=== PATIENT | male | born 1985 | race American Indian/Alaskan Native ===

== ENCOUNTER 2017-06-09 12:07 | Emergency (ER) | payer SELFPAY ==
[2017-06-09] MEDS ORDERED: Sodium Chloride 0.9% 10 ML Syringe FLUSH PRN (12:20)
--- NOTE | 2017-06-09 12:20 | EDM.PDOCBH ---
ED HPI GENERAL MEDICAL PROBLEM - General Chief Complaint: Drug or Alcohol Abuse Stated Complaint: AMBULANCE/OD Time Seen by Provider: 06/09/17 12:19 Source of Information: Reports: Patient, EMS, Old Records, RN, RN Notes Reviewed History Limitations: Reports: Intoxication - History of Present Illness INITIAL COMMENTS - FREE TEXT/NARRATIVE: Pt arrives by ambulance with report that pt took #12 tablets of Ambien 10mg, one box of #12 tablets of Coricidin Cold Tablets, and possibly a few Prozac 20mg and Gabapentin 300mg. Pt admits to polysubstance abuse but isn't sure what , or when he "used" last. Pt states he has been sad and depressed, so he "O.D.'d ". 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 Onset: Today, Unknown/Unsure (time of ingestion is unclear, pt reported to EMS that he took the pills 30mins. prior to calling 911) Duration: Constant Location: Reports: Generalized Severity: Severe Improves with: Reports: None Worsens with: Reports: None Associated Symptoms: Reports: No Other Symptoms - Related Data Allergies Allergy/AdvReac Type Severity Reaction Status Date / Time No Known Allergies Allergy Verified 12/30/13 13:09 Home Meds: Home Meds FLUoxetine [PROzac] 20 mg PO DAILY 10/26/13 [History] Zolpidem [Ambien] 15 mg PO DAILY 10/26/13 [History] Gabapentin [Neurontin] 300 mg PO TID 06/09/17 [History] Past Medical History Psychiatric History: Reports: Addiction, Depression Social & Family History - Family History Family Medical History: Unobtainable - Tobacco Use Smoking Status *Q: Current Every Day Smoker Years of Tobacco use: 16 Second Hand Smoke Exposure: Yes - Alcohol Use Days Per Week of Alcohol Use: 0 - Recreational Drug Use Recreational Drug Use: No Recreational Drug Type: Reports: Marijuana/Hashish, Methamphetamine - Living Situation & Occupation Living situation: Reports: with Family ED ROS GENERAL - Review of Systems Review Of Systems: Unable To Obtain ED EXAM, BEHAVIORAL HEALTH - Physical Exam Exam: See Below Exam Limited By: Intoxication General Appearance: Other (Sed[place], but awake and responsive to verbal stimuli) Eye Exam: Bilateral Eye: EOMI, PERRL (pupils equal and widely dilated) Ears: Normal External Exam, Normal Canal, Hearing Grossly Normal, Normal TMs Nose: Normal Inspection, Normal Mucosa, No Blood Throat/Mouth: Normal Inspection, Normal Lips, Normal Oropharynx, Normal Voice, No Airway Compromise Head: Atraumatic, Normocephalic Neck: Normal Inspection, Supple, Non-Tender, Full Range of Motion Respiratory/Chest: No Respiratory Distress, Lungs Clear, Normal Breath Sounds, No Accessory Muscle Use, Chest Non-Tender Cardiovascular: Normal Peripheral Pulses, Regular Rate, Rhythm, No Edema, No Gallop, No JVD, No Murmur, No Rub GI/Abdominal: Normal Bowel Sounds, Soft, Non-Tender, No Organomegaly, No Distention, No Abnormal Bruit, No Mass (Male) Exam: Deferred Rectal (Males) Exam: Deferred Back Exam: Normal Inspection Extremities: Normal Inspection, Normal Range of Motion, Non-Tender, Normal Capillary Refill, No Pedal Edema Neurological: Alert (but somnolent, answers to verbal stimuli, mildy confused), Disoriented to Time, Slow Response to Commands EKG INTERPRETATION EKG Date: 06/09/17 Time: 12:35 Rhythm: NSR Rate (Beats/Min): 87 [place]: Normal P-Wave: Present QRS: Normal ST-T: Normal QT: Normal Comparison: NA - No Prior EKG COURSE, BEHAVIORAL HEALTH COMP - Course Vital Signs: Last Vital Signs Temp 37.4 C 06/09/17 13:12 Pulse 83 06/09/17 13:12 Resp 21 H 06/09/17 13:12 BP 103/79 06/09/17 13:12 Pulse Ox 96 06/09/17 13:12 Orders, Labs, Meds: Active Orders 24 hr Category Date Time Status Blood Glucose Check, Bedside [] ONETIME Care 06/09/17 12:20 Active EKG 12 Lead [EKG Documentation Completion] [RC] STAT Care 06/09/17 12:20 Active Peripheral IV Care [RC] . DIRECTED Care 06/09/17 12:20 Active Telemetry Monitoring [Cardiac Monitoring] [RC] . Care 06/09/17 12:21 Active DIRECTED DRUG SCREEN URINE BIORAD [URCHEM] Stat Lab 06/09/17 12:51 Ordered UA W/MICROSCOPIC [URIN] Stat Lab 06/09/17 12:51 Ordered Sodium Chloride 0.9% [Saline Flush] Med 06/09/17 12:20 Active 10 ml FLUSH ASDIRECTED PRN Peripheral IV Insertion Adult [OM.PC] Stat Oth 06/09/17 12:20 Ordered Medication Orders Sodium Chloride (Saline Flush) 10 ml FLUSH ASDIRECTED PRN PRN Reason: Keep Vein Open Laboratory Tests 06/09/17 06/09/17 06/09/17 Range/Units 12:28 12:29 12:29 WBC 7.3 (5.0-10.0) 10^3/uL RBC 4.77 (4.6-6.2) 10^6/uL Hgb 13.7 L (14.0-18.0) g/dL Hct 41.7 (40.0-54.0) % MCV 87.4 (80-100) fL MCH 28.7 (27.0-34.0) pg MCHC 32.9 L (33.0-35.0) g/dL Plt Count 286 (150-450) 10^3/uL Neut % (Auto) 43.2 (42.2-75.2) % Lymph % (Auto) 44.5 (20.5-50.1) % [place] % (Auto) 8.2 H (2-8) % Eos % (Auto) 3.3 H (1.0-3.0) % Baso % (Auto) 0.8 (0.0-1.0) % PT 9.5 (9.0-12.0) SEC INR 1.0 (0.9-1.2) APTT 26.7 (22.0-34.0) SEC Sodium (135-145) mmol/L Potassium (3.6-5.0) mmol/L Chloride (101-111) mmol/L Carbon Dioxide (21.0-31.0) mmol/L Anion Gap BUN (7-18) mg/dL Creatinine (0.6-1.3) mg/dL Est Cr Clr Drug Dosing mL/min Estimated GFR (MDRD) BUN/Creatinine Ratio Glucose (74-105) mg/dL POC Glucose 86 (70-105) mg/dl Calcium (8.4-10.2) mg/dl Magnesium (1.8-2.5) mg/dL Total Bilirubin (0.2-1.0) mg/dL AST (10-42) IU/L ALT (10-60) IU/L Alkaline Phosphatase (42-121) IU/L Total Protein (6.7-8.2) g/dl Albumin (3.2-5.5) g/dl Globulin Albumin/Globulin Ratio TSH, Ultra Sensitive (0.45-5.33) uIu/mL Urine Color (YELLOW) Urine Appearance (CLEAR) Urine pH (5.0-9.0) Ur Specific [place] (1.005-1.030) Urine Protein (NEGATIVE) Urine Glucose (UA) (NEGATIVE) Urine Ketones (NEGATIVE) Urine Occult Blood (NEGATIVE) Urine Nitrite (NEGATIVE) Urine Bilirubin (NEGATIVE) Urine Urobilinogen (0.2-1.0) mg/dL Ur Leukocyte Esterase (NEGATIVE) Urine RBC /HPF Urine WBC (0-5/HPF) /HPF Ur Epithelial Cells /HPF Urine Bacteria (0-FEW/HPF) /HPF Salicylates Urine Opiates Screen (NEGATIVE) Ur Oxycodone Screen (NEGATIVE) Urine Methadone Screen (NEGATIVE) Acetaminophen Ur Barbiturates Screen (NEGATIVE) U Tricyclic Antidepress (NEGATIVE) Ur Phencyclidine Scrn (NEGATIVE) Ur Amphetamine Screen (NEGATIVE) U Methamphetamines Scrn (NEGATIVE) Urine MDMA Screen (NEGATIVE) U Benzodiazepines Scrn (NEGATIVE) Urine Cocaine Screen (NEGATIVE) U Marijuana (THC) Screen (NEGATIVE) Ethyl Alcohol mg/dL 06/09/17 06/09/17 06/09/17 Range/Units 12:29 12:29 12:51 WBC (5.0-10.0) 10^3/uL RBC (4.6-6.2) 10^6/uL Hgb (14.0-18.0) g/dL Hct (40.0-54.0) % MCV (80-100) fL MCH (27.0-34.0) pg MCHC (33.0-35.0) g/dL Plt Count (150-450) 10^3/uL Neut % (Auto) (42.2-75.2) % Lymph % (Auto) (20.5-50.1) % [place] % (Auto) (2-8) % Eos % (Auto) (1.0-3.0) % Baso % (Auto) (0.0-1.0) % PT (9.0-12.0) SEC INR (0.9-1.2) APTT (22.0-34.0) SEC Sodium 138 (135-145) mmol/L Potassium 4.5 (3.6-5.0) mmol/L Chloride 104 (101-111) mmol/L Carbon Dioxide 28.0 (21.0-31.0) mmol/L Anion Gap 10.5 BUN 8 (7-18) mg/dL Creatinine 1.2 (0.6-1.3) mg/dL Est Cr Clr Drug Dosing 96.10 mL/min Estimated GFR (MDRD) > 60 BUN/Creatinine Ratio 6.66 Glucose 95 (74-105) mg/dL POC Glucose (70-105) mg/dl Calcium 8.8 (8.4-10.2) mg/dl Magnesium 2.1 (1.8-2.5) mg/dL Total Bilirubin 0.6 (0.2-1.0) mg/dL AST 27 (10-42) IU/L ALT 26 (10-60) IU/L Alkaline Phosphatase 101 (42-121) IU/L Total Protein 8.0 (6.7-8.2) g/dl Albumin 4.1 (3.2-5.5) g/dl Globulin 3.9 Albumin/Globulin Ratio 1.05 TSH, Ultra Sensitive 0.49 (0.45-5.33) uIu/mL Urine Color Yellow (YELLOW) Urine Appearance Clear (CLEAR) Urine pH 7.0 (5.0-9.0) Ur Specific [place] 1.015 (1.005-1.030) Urine Protein Negative (NEGATIVE) Urine Glucose (UA) Negative (NEGATIVE) Urine Ketones Negative (NEGATIVE) Urine Occult Blood Negative (NEGATIVE) Urine Nitrite Negative (NEGATIVE) Urine Bilirubin Negative (NEGATIVE) Urine Urobilinogen 0.2 (0.2-1.0) mg/dL Ur Leukocyte Esterase Negative (NEGATIVE) Urine RBC 0-5 /HPF Urine WBC 0-5 (0-5/HPF) /HPF Ur Epithelial Cells Rare /HPF Urine Bacteria Rare (0-FEW/HPF) /HPF Salicylates < 4 Urine Opiates Screen (NEGATIVE) Ur Oxycodone Screen (NEGATIVE) Urine Methadone Screen (NEGATIVE) Acetaminophen < 10 Ur Barbiturates Screen (NEGATIVE) U Tricyclic Antidepress (NEGATIVE) Ur Phencyclidine Scrn (NEGATIVE) Ur Amphetamine Screen (NEGATIVE) U Methamphetamines Scrn (NEGATIVE) Urine MDMA Screen (NEGATIVE) U Benzodiazepines Scrn (NEGATIVE) Urine Cocaine Screen (NEGATIVE) U Marijuana (THC) Screen (NEGATIVE) Ethyl Alcohol < 5 mg/dL 06/09/17 Range/Units 12:51 WBC (5.0-10.0) 10^3/uL RBC (4.6-6.2) 10^6/uL Hgb (14.0-18.0) g/dL Hct (40.0-54.0) % MCV (80-100) fL MCH (27.0-34.0) pg MCHC (33.0-35.0) g/dL Plt Count (150-450) 10^3/uL Neut % (Auto) (42.2-75.2) % Lymph % (Auto) (20.5-50.1) % [place] % (Auto) (2-8) % Eos % (Auto) (1.0-3.0) % Baso % (Auto) (0.0-1.0) % PT (9.0-12.0) SEC INR (0.9-1.2) APTT (22.0-34.0) SEC Sodium (135-145) mmol/L Potassium (3.6-5.0) mmol/L Chloride (101-111) mmol/L Carbon Dioxide (21.0-31.0) mmol/L Anion Gap BUN (7-18) mg/dL Creatinine (0.6-1.3) mg/dL Est Cr Clr Drug Dosing mL/min Estimated GFR (MDRD) BUN/Creatinine Ratio Glucose (74-105) mg/dL POC Glucose (70-105) mg/dl Calcium (8.4-10.2) mg/dl Magnesium (1.8-2.5) mg/dL Total Bilirubin (0.2-1.0) mg/dL AST (10-42) IU/L ALT (10-60) IU/L Alkaline Phosphatase (42-121) IU/L Total Protein (6.7-8.2) g/dl Albumin (3.2-5.5) g/dl Globulin Albumin/Globulin Ratio TSH, Ultra Sensitive (0.45-5.33) uIu/mL Urine Color (YELLOW) Urine Appearance (CLEAR) Urine pH (5.0-9.0) Ur Specific [place] (1.005-1.030) Urine Protein (NEGATIVE) Urine Glucose (UA) (NEGATIVE) Urine Ketones (NEGATIVE) Urine Occult Blood (NEGATIVE) Urine Nitrite (NEGATIVE) Urine Bilirubin (NEGATIVE) Urine Urobilinogen (0.2-1.0) mg/dL Ur Leukocyte Esterase (NEGATIVE) Urine RBC /HPF Urine WBC (0-5/HPF) /HPF Ur Epithelial Cells /HPF Urine Bacteria (0-FEW/HPF) /HPF Salicylates Urine Opiates Screen Positive H (NEGATIVE) Ur Oxycodone Screen Negative (NEGATIVE) Urine Methadone Screen Negative (NEGATIVE) Acetaminophen Ur Barbiturates Screen Negative (NEGATIVE) U Tricyclic Antidepress Negative (NEGATIVE) Ur Phencyclidine Scrn Negative (NEGATIVE) Ur Amphetamine Screen Negative (NEGATIVE) U Methamphetamines Scrn Negative (NEGATIVE) Urine MDMA Screen Negative (NEGATIVE) U Benzodiazepines Scrn Negative (NEGATIVE) Urine Cocaine Screen Negative (NEGATIVE) U Marijuana (THC) Screen Positive H (NEGATIVE) Ethyl Alcohol mg/dL Medications Generic Name Dose Route Start Last Admin Trade Name Freq PRN Reason Stop Dose Admin Sodium Chloride 10 ml 06/09/17 12:20 Saline Flush FLUSH ASDIRECTED PRN Keep Vein Open Discontinued Medications Generic Name Dose Route Start Last Admin Trade Name Freq PRN Reason Stop Dose Admin Charcoal 50 gm 06/09/17 12:21 06/09/17 12:58 Actidose-Aqua PO 06/09/17 12:22 50 gm ONETIME ONE Administration Sodium Chloride 1,000 mls @ 999 mls/hr 06/09/17 12:21 06/09/17 12:47 Normal Saline IV 06/09/17 13:21 999 mls/hr .BOLUS ONE Administration Medical Clearance: 06/09/17 13:45 Pt unable to be medically cleared due to intoxication/sedation. Pt will be transferred to [facility] for admission to observation until he is able to be medically cleared for psychiatric evaluation due to the uncertain intention of the overdose. Departure - Departure Time of Disposition: 15:55 Disposition: DC/Tfer to Acute Hospital 02 Condition: Serious Clinical Impression: Polysubstance abuse, Depressive disorder Polysubstance overdose Qualifiers: Encounter type: initial encounter Injury intent: undetermined intent Qualified Code(s): T50.904A - Poisoning by unspecified drugs, medicaments and biological substances, undetermined, initial encounter - Discharge Information Forms: ED Department Discharge - My Orders Last 24 Hours: My Active Orders 06/09/17 12:20 Blood Glucose Check, Bedside [RC] ONETIME EKG 12 Lead [EKG Documentation Completion] [RC] STAT Peripheral IV Care [RC] . DIRECTED Sodium Chloride 0.9% [Saline Flush] 10 ml FLUSH ASDIRECTED PRN Peripheral IV Insertion Adult [OM.PC] Stat 06/09/17 12:21 Telemetry Monitoring [Cardiac Monitoring] [RC] . DIRECTED 06/09/17 12:51 DRUG SCREEN URINE BIORAD [URCHEM] Stat UA W/MICROSCOPIC [URIN] Stat - Assessment/Plan Last 24 Hours: My Active Orders 06/09/17 12:20 Blood Glucose Check, Bedside [RC] ONETIME EKG 12 Lead [EKG Documentation Completion] [RC] STAT Peripheral IV Care [RC] . DIRECTED Sodium Chloride 0.9% [Saline Flush] 10 ml FLUSH ASDIRECTED PRN Peripheral IV Insertion Adult [OM.PC] Stat 06/09/17 12:21 Telemetry Monitoring [Cardiac Monitoring] [RC] . DIRECTED 06/09/17 12:51 DRUG SCREEN URINE BIORAD [URCHEM] Stat UA W/MICROSCOPIC [URIN] Stat
[2017-06-09] MEDS ORDERED: Sodium Chloride 0.9% 1,000 ML IV ONE (12:21)
[2017-06-09] MEDS ORDERED: Activated Charcoal/Water Susp 50 GM/240 ML Tube PO ONE (12:21)
[2017-06-09 12:54] LABS: CHLORIDE,CL 104 mmol/L (101-111); SODIUM,NA 138 mmol/L (135-145)
[2017-06-09 12:59] LABS: ACETAMINOPHEN < 10
[2017-06-09 13:13] VITALS: BP 103/79
== END 2017-06-09 14:37 ==
LOC: DL.ED 12:07
DX: T42.6X2A Poisoning by other antiepileptic and sedative-hypnotic drugs, intentional self-harm, initial encounter (principal); F32.9 Major depressive disorder, single episode, unspecified; F19.10 Other psychoactive substance abuse, uncomplicated; F10.129 Alcohol abuse with intoxication, unspecified; F17.210 Nicotine dependence, cigarettes, uncomplicated; Z79.899 Other long term (current) drug therapy
CPT/HCPCS: 36415; 80053; 80305; 81001; 82962; 83735; 84443; 85025; 85610; 85730; 93005; 93010; 96360; 99285; G0480; J7030

== ENCOUNTER 2017-08-07 08:07 | Emergency (ER) | payer SELFPAY ==
[2017-08-07] MEDS ORDERED: MVI, Adult with Vitamin K 10 ML, Folic Acid 1 MG, Thiamine 100 MG in Lactated Ringers 1... IV ONE ×4 (08:08)
[2017-08-07] MEDS ORDERED: Sodium Chloride 0.9% 10 ML Syringe FLUSH PRN (08:08)
[2017-08-07 08:19] VITALS: BP 166/107
[2017-08-07 08:42] LABS: ANION GAP 14.7; CHLORIDE,CL 107 mmol/L (101-111); SODIUM,NA 142 mmol/L (135-145)
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
== END 2017-08-07 09:46 ==
LOC: DL.ED 08:07
DX: T39.1X1A Poisoning by 4-Aminophenol derivatives, accidental (unintentional), initial encounter (principal); T45.0X1A Poisoning by antiallergic and antiemetic drugs, accidental (unintentional), initial encounter; F17.210 Nicotine dependence, cigarettes, uncomplicated; Z79.899 Other long term (current) drug therapy
CPT/HCPCS: 36415; 51701; 80053; 80305; 81001; 85025; 96360; 99283; G0480; J3411; J7050; J7120; 99284; J3490

== ENCOUNTER 2018-12-01 12:55 | Emergency (ER) | payer MEDICAID ==
[2018-12-01 13:03] VITALS: BP 154/105; PULSE 89
[2018-12-01] MEDS ORDERED: Sodium Chloride 0.9% 10 ML Syringe FLUSH PRN (13:19)
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
[2018-12-01 14:02] LABS: ANION GAP 14.6; CHLORIDE,CL 101 mmol/L (101-111); SODIUM,NA 137 mmol/L (135-145)
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
== END 2018-12-01 14:25 | disposition home or self-care (01) ==
LOC: DL.ED 12:55
DX: S09.90XA Unspecified injury of head, initial encounter (principal); Z87.820 Personal history of traumatic brain injury; F32.9 Major depressive disorder, single episode, unspecified; F17.210 Nicotine dependence, cigarettes, uncomplicated; Y08.02XA Assault by strike by baseball bat, initial encounter
CPT/HCPCS: 36415; 70450; 80053; 80305-QW; 81001; 85025; 87086; 99284-25; G0480

== ENCOUNTER 2018-12-09 00:10 | Emergency (ER) | payer MEDICARE, MEDICAID ==
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
[2018-12-09 00:54] LABS: ANION GAP 13.1; CHLORIDE,CL 106 mmol/L (101-111); SODIUM,NA 138 mmol/L (135-145)
[2018-12-09] MEDS ORDERED: Potassium Chloride 10 MEQ Tab.ER PO ONE (00:59)
[2018-12-09 01:18] VITALS: BP 122/80; PULSE 78
== END 2018-12-09 01:30 | disposition home or self-care (01) ==
LOC: DL.ED 00:10
DX: F19.10 Other psychoactive substance abuse, uncomplicated (principal); R06.02 Shortness of breath; F32.9 Major depressive disorder, single episode, unspecified; Z91.14 Patient's other noncompliance with medication regimen; Z79.899 Other long term (current) drug therapy
CPT/HCPCS: 36415; 71045; 80053; 80305; 82150; 82553; 83690; 84484; 85025; 85379; 93005; 99285; A9270; G0480

== ENCOUNTER 2019-02-27 21:22 | Observation (INO) | payer MEDICAID ==
[~2019-02-27 21:22] MED LIST: LORazepam 2 MG/ML Syringe IVPUSH ONE; Sodium Chloride 0.9% 10 ML Syringe FLUSH PRN
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
[2019-02-27 21:45] LABS: ANION GAP 8.7; CHLORIDE,CL 106 mmol/L (101-111); SODIUM,NA 137 mmol/L (135-145)
[2019-02-27 21:46] LABS: ACETAMINOPHEN < 10 ug/mL
[2019-02-28] MEDS: Sodium Chloride 0.9% 1,000 ML IV SCH ×2 (00:09→06:48)
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
[2019-02-28 07:41] VITALS: BP 116/66; PULSE 74
[2019-02-28] MEDS ORDERED: Nicotine 14 MG/24 Hr Patch TRDERM SCH (09:00)
--- NOTE | 2019-02-28 11:15 | PN ---
DATE: 02/28/2019 SUBJECTIVE: The patient did well overnight. Telemetry remained in sinus rhythm with no arrhythmia, and the patient had a good night sleep and no seizures. The patient denies worsening of his hallucinations. The patient denies any other complaints. OBJECTIVE: Vital Signs: Blood pressure is 116/66, pulse 74, respiration of 16, temperature of 98, and saturation is 98% on room air. Heart: Regular rate and rhythm. Normal S1 and S2. No gallops. No rubs. Lungs: Equal bilaterally. No crackles. No wheezing. Abdomen: Soft, nontender. Bowel sounds are positive. Extremities: Negative for any pedal edema. No calf tenderness. PLAN: We will discharge the patient home today, and we will have him follow up with Dr. Mcmanus who is his primary care physician this week, and we will also have him set up an appointment with Psychiatry. [facility] /[id number]
--- NOTE | 2019-03-01 02:43 | DISCH ---
FINAL DIAGNOSES: 1. Antidepressant overdosage (Wellbutrin). 2. History of traumatic brain injury. 3. Depression. BRIEF HISTORY OF PRESENT ILLNESS: Please see H and P. PERTINENT LAB, X-RAY AND OTHER TESTS: See H and P. HOSPITAL COURSE: The patient was admitted for observation. He was placed on telemetry and telemetry remained in sinus rhythm with no significant arrhythmia. The patient throughout the hospital course was uncomplicated, and there was no worsening of his hallucination or development of any seizures. The patient was subsequently discharged. DISCHARGE INSTRUCTION: The patient is going to follow up with Dr. Mcmanus who is his primary care physician this week and also to set up an appointment with Psychiatry. [facility] /[id number]
[2019-03-01] MEDS ORDERED: Check Patch TRDERM SCH (09:00)
== END 2019-02-28 13:00 | disposition home or self-care (01) ==
LOC: DL.ED 21:22 → DL.MS 23:10
PROVIDERS: ADMIT Internal Medicine; ATTEND Internal Medicine
DX: T43.291A Poisoning by other antidepressants, accidental (unintentional), initial encounter (principal); F32.9 Major depressive disorder, single episode, unspecified; F17.210 Nicotine dependence, cigarettes, uncomplicated; Z87.820 Personal history of traumatic brain injury; Z79.899 Other long term (current) drug therapy
CPT/HCPCS: 36415; 71045; 80053; 80305; 80320; 80329; 81003; 84484; 85025; 85610; 93005; 96374; 99285; J2060; J7030; 96361; G0378; G0480

== ENCOUNTER 2020-08-09 14:49 | Emergency (ER) | payer OTHER, MEDICAID ==
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
[2020-08-09 16:24] LABS: ANION GAP 17.2 mEq/L (7-13); CHLORIDE,CL 113 mmol/L (98-107); SODIUM,NA 149 mmol/L (136-145)
== END 2020-08-09 15:00 ==
LOC: DL.ED 14:49
DX: R41.82 Altered mental status, unspecified (principal); S80.812A Abrasion, left lower leg, initial encounter; V49.40XA Driver injured in collision with unspecified motor vehicles in traffic accident, initial encounter
CPT/HCPCS: 36415; 71045; 72020; 72170; 80053; 80305-QW; 80307; 85025; 99285-25